=== PATIENT | female | born 1985 | race Caucasian/White ===

== ENCOUNTER 2018-03-09 15:19 | Emergency (ER) | payer OTHER ==
[2018-03-09 15:23] VITALS: BP 108/62; PULSE 76; TEMP 98.1; BMI 29.5
--- NOTE | 2018-03-09 15:24 | PDOC ---
Rapid Medical Evaluation Time Seen by Provider: 03/09/18 15:22 Medical Evaluation: Allergies Allergy/AdvReac Type Severity Reaction Status Date / Time Penicillins Allergy Hives Verified 05/24/15 11:18 03/09/18 15:22 The patient presents to the ED: left eye itching and redness x 2 days, no visual changes On brief exam: mild erythema to left eye, no drainage, The patient was ordered for: none The patient to proceed to the ED Discharge Disposition - Diagnosis Redness of left eye - Referrals - Patient Instructions - Post Discharge Activity
--- NOTE | 2018-03-09 16:31 | PDOC ---
History of Present Illness - General Chief Complaint: Eye Problem Stated Complaint: EYE PROBLEM Time Seen by Provider: 03/09/18 15:22 History Source: Patient Exam Limitations: No Limitations - History of Present Illness Initial Comments: 03/09/18 16:22 c/o one day left eye itchy with discharge this am , no redness no uri symptoms no fever no contacts no fb in eye Past History - Past Medical History Allergies/Adverse Reactions: Allergies Allergy/AdvReac Type Severity Reaction Status Date / Time Penicillins Allergy Hives Verified 03/09/18 15:23 Home Medications: Ambulatory Orders Erythromycin 0.5% Eye Ointment [Erythromycin 0.5% Eye Ointment -] 1 applic OD TID #1 tube 03/09/18 Ketotifen Fumarate [Eye Itch Relief] 5 ml OU BID #1 bottle 03/09/18 Anemia: No Asthma: No Cancer: No Cardiac Disorders: No CVA: No COPD: No CHF: No - Suicide/Smoking/Psychosocial Hx Smoking Status: No Smoking History: Never smoked Number of Cigarettes Smoked Daily: 0 Hx Alcohol Use: No Substance Use Type: None Review of Systems - Review of Systems Able to Perform ROS?: Yes Is the patient limited Lithuanian proficient: No Constitutional: No: Symptoms Reported HEENTM: Yes: Symptoms Reported *Physical Exam - Vital Signs Last Vital Signs Temp Pulse Resp BP Pulse Ox 98.1 F 76 18 108/62 98 03/09/18 15:20 03/09/18 15:20 03/09/18 15:20 03/09/18 15:20 03/09/18 15:20 - Physical Exam General Appearance: Yes: Nourished, Appropriately Dressed HEENT: positive: EOMI, NITIN, Other (EOMI without pain, conjunctiva left slighty injected no discharge, ) Procedures - Eye Procedure Alcaine Drops Administered: Yes Progress: 03/09/18 19:41 neg fluoroscein neg fb neg uptake Medical Decision Making - Medical Decision Making 03/09/18 16:23 cc: itchy left eye with drainage this am no vision change no contact lenses *DC/Admit/Observation/Transfer Diagnosis at time of Disposition: Redness of left eye - Discharge Dispostion Disposition: HOME Condition at time of disposition: Good - Prescriptions Prescriptions: Erythromycin 0.5% Eye Ointment [Erythromycin 0.5% Eye Ointment -] 1 applic OD TID #1 tube Ketotifen Fumarate [Eye Itch Relief] 5 ml OU BID #1 bottle - Referrals Referrals: Tiki Zarate [Primary Care Provider] - Quentin Rodriguez MD [Staff Physician] - - Patient Instructions Additional Instructions: use the eye drops in both eyes for itching use the erythromycin to the left eye three times a day follow with the eye doctor if any worse - Post Discharge Activity
== END 2018-03-09 16:39 | disposition home or self-care (01) ==
LOC: JERFT 15:19
DX: L53.8 Other specified erythematous conditions (principal); H57.89 Other specified disorders of eye and adnexa
CPT/HCPCS: 99281-25

== ENCOUNTER 2018-06-29 11:55 | Emergency (ER) | payer OTHER ==
[2018-06-29 12:06] VITALS: BP 116/53; PULSE 95; BMI 27.8
[2018-06-29] MEDS ORDERED: IBUPROFEN 600 MG TABLET (FP) PO ONE ×2 (13:31→13:34)
[2018-06-29] MEDS ORDERED: ALBUTEROL SO4 2.5/IPRATROPIUM 0.5 INH SOL 3 ML VIAL.NEB. NEB ONE ×2 (13:31→13:34)
--- NOTE | 2018-06-29 13:38 | PDOC ---
History of Present Illness - General Chief Complaint: Cold Symptoms Stated Complaint: FLU SYMPTOMS Time Seen by Provider: 06/29/18 12:58 History Source: Patient Exam Limitations: No Limitations Past History - Travel Traveled outside of the country in the last 30 days: No Close contact w/someone who was outside of country & ill: No - Past Medical History Allergies/Adverse Reactions: Allergies Allergy/AdvReac Type Severity Reaction Status Date / Time Penicillins Allergy Hives Verified 06/29/18 12:04 Home Medications: Ambulatory Orders Albuterol Sulfate Inhaler - [Ventolin HFA Inhaler -] 1 - 2 inh PO Q4H #1 inhaler 06/29/18 Ibuprofen 600 mg PO Q6H #30 tablet 06/29/18 Oseltamivir Phosphate [Tamiflu] 75 mg PO BID #10 capsule 06/29/18 Anemia: No Asthma: No Cancer: No Cardiac Disorders: No CVA: No COPD: No CHF: No - Suicide/Smoking/Psychosocial Hx Smoking Status: No Smoking History: Never smoked Have you smoked in the past 12 months: No Number of Cigarettes Smoked Daily: 0 Information on smoking cessation initiated: No Hx Alcohol Use: No Drug/Substance Use Hx: No Substance Use Type: None Review of Systems - Review of Systems Able to Perform ROS?: Yes Comments:: 06/29/18 13:30 CONSTITUTIONAL: Present: Fever, chills, body aches Absent: diaphoresis, generalized weakness, malaise, loss of appetite HEENT: Present: rhinorrhea, nasal congestion, throat pain. Absent: difficulty swallowing, mouth swelling, ear pain, eye pain, visual Changes CARDIOVASCULAR: Absent: chest pain, loss of consciousness, palpitations, irregular heart rate, peripheral edema RESPIRATORY: Present: Cough Absent: shortness of breath, dyspnea with exertion, orthopnea, wheezing, stridor, hemoptysis GASTROINTESTINAL: Absent: abdominal pain, abdominal distension, nausea, vomiting, diarrhea, constipation, melena, hematochezia SKIN: Absent: rash, itching, pallor NEUROLOGIC: Present: headache Absent: focal weakness or paresthesias, dizziness, unsteady gait, seizure, mental status changes, bladder or bowel incontinence Is the patient limited Czech proficient: No *Physical Exam - Vital Signs Last Vital Signs Temp Pulse Resp BP Pulse Ox 102.0 F H 95 H 16 116/53 L 100 06/29/18 12:04 06/29/18 12:04 06/29/18 12:04 06/29/18 12:04 06/29/18 12:04 - Physical Exam Comments: 06/29/18 13:30 GENERAL: Well developed, well nourished. Awake and alert. No acute distress. HEENT: Normocephalic, atraumatic. PERRLA, EOMI. No conjunctival pallor. Sclera are non- icteric. Moist mucous membranes. Oropharynx is clear. NECK: Supple. Full ROM. No JVD. Carotid pulses 2+ and symmetric, without bruits. No thyromegaly. No lymphadenopathy. CARDIOVASCULAR: Regular rate and rhythm. No murmurs, rubs, or gallops. Distal pulses are 2+ and symmetric. PULMONARY: No evidence of respiratory distress. Lungs clear to auscultation bilaterally. No wheezing, rales or rhonchi. ABDOMINAL: Soft. Non-tender. Non-distended. No rebound or guarding. No organomegaly. Normoactive bowel sounds. MUSCULOSKELETAL Normal range of motion at all joints. No bony deformities or tenderness. No CVA tenderness. EXTREMITIES: No cyanosis. No clubbing. No edema. No calf tenderness. SKIN: Warm and dry. Normal capillary refill. No rashes. No jaundice. NEUROLOGICAL: Alert, awake, appropriate. Cranial nerves 2-12 intact. No deficits to light touch and temperature in face, upper extremities and lower extremities. No motor deficits in the in face, upper extremities and lower extremities. Normoreflexic in the upper and lower extremities. Normal speech. Toes are down- going bilaterally. Gait is normal without ataxia. PSYCHIATRIC: Cooperative. Good eye contact. Appropriate mood and affect. Moderate Sedation - Procedure Monitoring Vital Signs: Procedure Monitoring Vital Signs Temperature 102.0 F H 06/29/18 12:04 Pulse Rate 95 H 06/29/18 12:04 Respiratory Rate 16 06/29/18 12:04 Blood Pressure 116/53 L 06/29/18 12:04 O2 Sat by Pulse Oximetry (%) 100 06/29/18 12:04 *DC/Admit/Observation/Transfer Diagnosis at time of Disposition: Influenza A - Discharge Dispostion Disposition: HOME Condition at time of disposition: Stable Decision to Admit order: No - Referrals Referrals: Crispin Philip MD [Staff Physician] - - Patient Instructions Printed Discharge Instructions: DI for Influenza -- Adult Additional Instructions: You have the flu. This is a virus. It will get better on its own in 7-10 days. Take the Tamiflu twice a day for 5 days to help reduce the symptoms of the flu. Take Motrin 600mg every 6 hours as needed for pain or fever Take Tylenol 650mg every 4 hours as needed for pain or fever You may use the albuterol inhaler every 4 hours for cough Drink plenty of fluids Warm tea and cough drops may helpa s well. Follow up with your primary care doctor this week Return to the ED for shortness of breath, difficulty breathing, weakness or if you have any changes in your symptoms - Post Discharge Activity Forms/Work/School Notes: Back to School
[2018-06-29 14:13] VITALS: TEMP 99.4
== END 2018-06-29 14:13 | disposition home or self-care (01) ==
LOC: JERFT 11:55
PROC: 3E0F7GC Introduction of Other Therapeutic Substance into Respiratory Tract, Via Natural or Artificial Opening (ICD-10-PCS; principal; 2018-06-29)
DX: J09.X2 Influenza due to identified novel influenza A virus with other respiratory manifestations (principal)
CPT/HCPCS: 99281-25

== ENCOUNTER 2018-06-30 13:10 | Emergency (ER) | payer OTHER ==
[2018-06-30 13:17] VITALS: BP 109/70; PULSE 98; TEMP 99.6; BMI 27.8
[2018-06-30] MEDS ORDERED: DEXAMETHASONE LIQUID 0.5 MG/5 ML 240 ML BULK BOTTLE PO ONE (14:35)
[2018-06-30] MEDS ORDERED: ONDANSETRON 4 MG/2 ML VIAL IVPUSH ONE (14:35)
[2018-06-30] MEDS ORDERED: IBUPROFEN 600 MG TABLET (FP) PO ONE ×2 (14:35→14:44)
--- NOTE | 2018-06-30 14:35 | PDOC ---
History of Present Illness - General Chief Complaint: Shortness of Breath Stated Complaint: COUGHING Time Seen by Provider: 06/30/18 13:36 History Source: Patient Exam Limitations: No Limitations - History of Present Illness Initial Comments: 06/30/18 20:08 Patient is a 33-year-old female who presents to the ER for coughing and mucus. Patient was seen in the ER yesterday and diagnosed with the flu. Patient states when she coughs she feels that the phlegm gets caught in her throat and she is choking. Patient states after Tamiflu she overall feels better denies vomiting, shortness of breath, difficulty breathing nausea and vomiting. Past History - Past Medical History Allergies/Adverse Reactions: Allergies Allergy/AdvReac Type Severity Reaction Status Date / Time Penicillins Allergy Hives Verified 06/30/18 13:12 Home Medications: Ambulatory Orders Albuterol Sulfate Inhaler - [Ventolin HFA Inhaler -] 1 - 2 inh PO Q4H #1 inhaler 06/29/18 Ibuprofen 600 mg PO Q6H #30 tablet 06/29/18 Oseltamivir Phosphate [Tamiflu] 75 mg PO BID #10 capsule 06/29/18 Guaifenesin AC [Robitussin AC] 10 ml PO Q8H #100 ml MDD 3 06/30/18 predniSONE [Deltasone -] 40 mg PO DAILY #8 tablet 06/30/18 Anemia: No Asthma: No Cancer: No Cardiac Disorders: No CVA: No COPD: No CHF: No Other medical history: flu 06/29/18 - Suicide/Smoking/Psychosocial Hx Smoking Status: No Smoking History: Never smoked Have you smoked in the past 12 months: No Number of Cigarettes Smoked Daily: 0 Hx Alcohol Use: No Drug/Substance Use Hx: No Substance Use Type: None Review of Systems - Review of Systems Able to Perform ROS?: Yes Comments:: 06/30/18 20:06 CONSTITUTIONAL: Absent: fever, chills, diaphoresis, generalized weakness, malaise, loss of appetite HEENT: Absent: rhinorrhea, nasal congestion, throat pain, throat swelling, difficulty swallowing, mouth swelling, ear pain, eye pain, visual Changes CARDIOVASCULAR: Absent: chest pain, loss of consciousness, palpitations, irregular heart rate, peripheral edema RESPIRATORY: Present: cough Absent: shortness of breath, dyspnea with exertion, orthopnea, wheezing, stridor, hemoptysis GASTROINTESTINAL: Absent: abdominal pain, abdominal distension, nausea, vomiting, diarrhea, constipation, melena, hematochezia GENITOURINARY: Absent: dysuria, frequency, urgency, hesitancy, hematuria, flank pain, genital pain MUSCULOSKELETAL: Absent: myalgia, arthralgia, joint swelling SKIN: Absent: rash, itching, pallor HEMATOLOGIC/IMMUNOLOGIC: Absent: easy bleeding, easy bruising, lymphadenopathy, frequent infections ENDOCRINE: Absent: unexplained weight gain, unexplained weight loss, heat intolerance, cold intolerance NEUROLOGIC: Absent: headache, focal weakness or paresthesias, dizziness, unsteady gait, seizure, mental status changes, bladder or bowel incontinence PSYCHIATRIC: Absent: anxiety, depression, suicidal or homicidal ideation, hallucinations. Is the patient limited North Korean proficient: No *Physical Exam - Vital Signs Last Vital Signs Temp Pulse Resp BP Pulse Ox 99.6 F 98 H 18 109/70 98 06/30/18 13:16 06/30/18 13:16 06/30/18 13:16 06/30/18 13:16 06/30/18 13:16 - Physical Exam Comments: 06/30/18 20:06 GENERAL: Well developed, well nourished. Awake and alert. No acute distress. HEENT: Normocephalic, atraumatic. PERRLA, EOMI. No conjunctival pallor. Sclera are non- icteric. Moist mucous membranes. Oropharynx is clear. NECK: Supple. Full ROM. No JVD. Carotid pulses 2+ and symmetric, without bruits. No thyromegaly. No lymphadenopathy. CARDIOVASCULAR: Regular rate and rhythm. No murmurs, rubs, or gallops. Distal pulses are 2+ and symmetric. PULMONARY: No evidence of respiratory distress. Lungs clear to auscultation bilaterally. No wheezing, rales or rhonchi. ABDOMINAL: Soft. Non-tender. Non-distended. No rebound or guarding. No organomegaly. Normoactive bowel sounds. MUSCULOSKELETAL Normal range of motion at all joints. No bony deformities or tenderness. No CVA tenderness. EXTREMITIES: No cyanosis. No clubbing. No edema. No calf tenderness. SKIN: Warm and dry. Normal capillary refill. No rashes. No jaundice. NEUROLOGICAL: Alert, awake, appropriate. Cranial nerves 2-12 intact. No deficits to light touch and temperature in face, upper extremities and lower extremities. No motor deficits in the in face, upper extremities and lower extremities. Normoreflexic in the upper and lower extremities. Normal speech. Toes are down- going bilaterally. Gait is normal without ataxia. PSYCHIATRIC: Cooperative. Good eye contact. Appropriate mood and affect. Moderate Sedation - Procedure Monitoring Vital Signs: Procedure Monitoring Vital Signs Temperature 99.6 F 06/30/18 13:16 Pulse Rate 98 H 06/30/18 13:16 Respiratory Rate 18 06/30/18 13:16 Blood Pressure 109/70 06/30/18 13:16 O2 Sat by Pulse Oximetry (%) 98 06/30/18 13:16 Medical Decision Making - Medical Decision Making 06/30/18 20:07 Patient presents to the ER for coughing and mucus. Exam is benign, lung sounds are clear. Give patient a dose of Decadron. Encourage patient to continue her cough medicine and to drink plenty of fluids. Recommended a humidifier so the mucus doesn't get stuck. Advised that it is okay to vomit to get the mucus out. Discharge home I discussed the physical exam findings, ancillary test results and final diagnoses with the patient. I answered all of the patient's questions. The patient was satisfied with the care received and felt comfortable with the discharge plan and treatment plan. The Patient agrees to follow up with the primary care physician/specialist within 24-72 hours. Return precautions were given. *DC/Admit/Observation/Transfer Diagnosis at time of Disposition: Influenza A - Discharge Dispostion Disposition: HOME Condition at time of disposition: Stable Decision to Admit order: No - Prescriptions Prescriptions: Guaifenesin AC [Robitussin AC] 10 ml PO Q8H #100 ml MDD 3 predniSONE [Deltasone -] 40 mg PO DAILY #8 tablet - Referrals Referrals: Tiki Zarate [Primary Care Provider] - - Patient Instructions Printed Discharge Instructions: DI for Influenza -- Adult Additional Instructions: You have the flu. This is a virus that will get better on its own in approximately 7-10 days. You will most likely have a fever for 7-10 days because of the flu. This is to be expected. Drink plenty of fluids to prevent dehydration and get plenty of rest. Warm tea and cough drops may help your symptoms as well. Take the tamiflu twice a day for 5 days to help reduce the symptoms of the flu. This medication will not cure the flu. Take Motrin as directed for pain and fever. Take all other medications as prescribed. Follow up with your primary care doctor this week Return to the ED for difficulty breathing, shortness of breath, weakness, or if you have any other changes in your symptoms. - Post Discharge Activity Forms/Work/School Notes: Back to Work
[2018-06-30] MEDS ORDERED: ONDANSETRON *ODT* 4 MG TABLET ONE (14:43)
[2018-06-30] MEDS ORDERED: DEXAMETHASONE SOD PHOSPHATE 10 MG/1 ML VIAL ONE (14:44)
[2018-06-30] MEDS ORDERED: ONDANSETRON *ODT* 4 MG TABLET SL ONE (14:46)
== END 2018-06-30 15:41 | disposition home or self-care (01) ==
LOC: JERFT 13:10
DX: J09.X2 Influenza due to identified novel influenza A virus with other respiratory manifestations (principal)
CPT/HCPCS: 99281-25; Q0162

== ENCOUNTER 2018-07-01 23:12 | Emergency (ER) | payer OTHER ==
[2018-07-01 23:21] VITALS: BP 117/73; PULSE 74; TEMP 97.8; BMI 28.0
--- NOTE | 2018-07-02 00:52 | PDOC ---
History of Present Illness - General Chief Complaint: Shortness of Breath Stated Complaint: SHORTNESS OF BREATH Time Seen by Provider: 07/02/18 00:17 History Source: Patient Exam Limitations: No Limitations - History of Present Illness Initial Comments: 07/02/18 00:51 33 year old woman with no past medical history who presents after being positive for influenza in 06/29/18 and complaining of shortness of breath and some central chest "burning" that occurs only coughing. The patient was seen here on 06/30/18 for the same complaints and was advised to use a humidifier and was given prednisone, robitussin and albuterol inhaler. The patient reports that she used a humidifier last night for the first time. She notes that she easily gets anxious. Past History - Past Medical History Allergies/Adverse Reactions: Allergies Allergy/AdvReac Type Severity Reaction Status Date / Time Penicillins Allergy Hives Verified 06/30/18 13:12 Home Medications: Ambulatory Orders Albuterol Sulfate Inhaler - [Ventolin HFA Inhaler -] 1 - 2 inh PO Q4H #1 inhaler 06/29/18 Ibuprofen 600 mg PO Q6H #30 tablet 06/29/18 Oseltamivir Phosphate [Tamiflu] 75 mg PO BID #10 capsule 06/29/18 Guaifenesin AC [Robitussin AC] 10 ml PO Q8H #100 ml MDD 3 06/30/18 predniSONE [Deltasone -] 40 mg PO DAILY #8 tablet 06/30/18 Anemia: No Asthma: No Cancer: No Cardiac Disorders: No CVA: No COPD: No CHF: No - Suicide/Smoking/Psychosocial Hx Smoking Status: No Smoking History: Never smoked Have you smoked in the past 12 months: No Number of Cigarettes Smoked Daily: 0 Hx Alcohol Use: No Drug/Substance Use Hx: No Substance Use Type: None Review of Systems - Review of Systems Able to Perform ROS?: Yes Is the patient limited Indonesian proficient: No Constitutional: No: Chills, Diaphoresis, Fever Respiratory: No: Cough, Orthopnea, Shortness of Breath *Physical Exam - Vital Signs Last Vital Signs Temp Pulse Resp BP Pulse Ox 97.8 F 74 20 117/73 99 07/01/18 23:17 07/01/18 23:17 07/01/18 23:17 07/01/18 23:17 07/01/18 23:17 Moderate Sedation - Procedure Monitoring Vital Signs: Procedure Monitoring Vital Signs Temperature 97.8 F 07/01/18 23:17 Pulse Rate 74 07/01/18 23:17 Respiratory Rate 20 07/01/18 23:17 Blood Pressure 117/73 07/01/18 23:17 O2 Sat by Pulse Oximetry (%) 99 07/01/18 23:17 *DC/Admit/Observation/Transfer Diagnosis at time of Disposition: Influenza A, Cough - Discharge Dispostion Disposition: HOME Condition at time of disposition: Stable Decision to Admit order: No - Referrals Referrals: Tiki Zarate [Primary Care Provider] - - Patient Instructions Printed Discharge Instructions: DI for Cough -- Adult, DI for Influenza -- Adult Additional Instructions: You were seen in the ED for complaints of coughing. In the ED you were evaluated with EKG. Your results were unremarkable. There does not appear to be an acute need for immediate hospitalization. You are advised to follow up with your Primary Care Physician within 1 week. Use over the counter mucinex as needed, continue to use your humidifier, Tamiflu , Prednisone and Robitussin. Return to the ED immediately if you experience worsening chest pain, significant shortness of breath, nausea, diaphoresis, lightheadedness or loss of consciousness. - Post Discharge Activity
--- NOTE | 2018-07-02 01:16 | PDOC ---
Attending Attestation - HPI HPI: 07/02/18 01:27 The patient is a 33 year old female, otherwise healthy, presents to the ER with persistent productive cough and shortness of breath for the past four days. Patient states that on 06/29 she was diagnosed with flu and prescribed tamiflu. Patient was told to use a humidifier, which she did not use today. Patient states that her cough is productive of thick phlegm, which makes her short of breath. The patient denies chest pain, headache and dizziness. Denies fever, chills, nausea, vomit, diarrhea and constipation. Denies dysuria, frequency, urgency and hematuria. Allergies: NKA Past surgical history: None reported. Social history: No reported alcohol, drug or cigarette use. PCP: Dr. Zarate <Clarisa Oscar - Last Filed: 07/02/18 01:26> - Resident Resident Name: Luanne Waller - ED Attending Attestation I have performed the following: I have examined & evaluated the patient, The case was reviewed & discussed with the resident, I agree w/resident's findings & plan, Exceptions are as noted - Physicial Exam PE: 07/02/18 01:36 Patient is awake and alert, well-appearing, in no distress normocephalic and atraumatic PERRLA, EOMI CTA RRR Soft nontender nondistended - Medical Decision Making 07/02/18 01:36 Patient is a well-appearing 33-year-old female recently diagnosed with influenza , currently on Tamiflu presents with recurrent difficulty breathing and substernal discomfort. Patient's well-appearing, afebrile, with normal O2 saturation on room air. Will administer a Combivent treatment, we'll obtain EKG. Will discharge if EKG is noted to be within normal limit. I do not suspect ACS or PE at this time. There is no evidence of myocarditis. <Kavon Andrade - Last Filed: 07/02/18 01:37>
[2018-07-02] MEDS ORDERED: ALBUTEROL SO4 2.5/IPRATROPIUM 0.5 INH SOL 3 ML VIAL.NEB. NEB ONE ×2 (01:18→01:23)
--- NOTE | 2018-07-02 16:36 | EKG ---
Test Reason : Blood Pressure : / mmHG Vent. Rate : 078 BPM Atrial Rate : 078 BPM P-R Int : 118 ms QRS Dur : 070 ms QT Int : 366 ms P-R-T Axes : 066 039 007 degrees QTc Int : 417 ms NORMAL SINUS RHYTHM WITH SINUS ARRHYTHMIA NORMAL ECG WHEN COMPARED WITH ECG OF 25-MAR-2013 11:31, NO SIGNIFICANT CHANGE WAS FOUND Confirmed by Sunshine Williamson ([id number]) on 07/02/2018 4:36:22 PM Referred By: Confirmed By:Sunshine Williamson
== END 2018-07-02 02:36 | disposition home or self-care (01) ==
LOC: JER 23:12
PROC: 3E0F7GC Introduction of Other Therapeutic Substance into Respiratory Tract, Via Natural or Artificial Opening (ICD-10-PCS; principal; 2018-07-01)
DX: J09.X2 Influenza due to identified novel influenza A virus with other respiratory manifestations (principal); R05 Cough
CPT/HCPCS: 93005; 93010; 99281-25

== ENCOUNTER 2024-04-02 11:20 | Emergency (ER) | payer BC, OTHER ==
[2024-04-02 11:36] VITALS: BP 99/61; PULSE 81; RESP 18; TEMP 98.7; BMI 31.5
[2024-04-02] MEDS ORDERED: KETOROLAC TROMETHAMINE 30 MG/1 ML VIAL ONE (12:52)
[2024-04-02] MEDS: KETOROLAC TROMETHAMINE 30 MG/1 ML VIAL IM ONE (12:57)
[2024-04-02 14:03] LABS: HIV INTERPRETATION NEGATIVE (NEGATIVE)
== END 2024-04-02 13:28 | disposition home or self-care (01) ==
LOC: JER 11:20 → JERFT 11:20
PROC: 3E0233Z Introduction of Anti-inflammatory into Muscle, Percutaneous Approach (ICD-10-PCS; principal; 2024-04-02)
DX: M25.561 Pain in right knee (principal)
CPT/HCPCS: 36415; 73562-TC-RT-FY; 86803; 87389; 99284-25